=== PATIENT | female | born 1990 | race Caucasian/White ===

== ENCOUNTER 2018-12-10 18:55 | Emergency (ER) | payer BC ==
[2018-12-10] MEDS ORDERED: Sodium Chloride 0.9% 10 ML Syringe FLUSH PRN (19:12)
[2018-12-10] MEDS: Ondansetron 4 MG/2 ML SDV IVPUSH ONE (19:39)
[2018-12-10] MEDS: Morphine 4 MG/ML Syringe IVPUSH ONE (19:39)
[2018-12-10 20:01] LABS: CHLORIDE,CL 99 mmol/L (98-107); SODIUM,NA 135 mmol/L (136-145)
[2018-12-10 20:03] LABS: ANION GAP 13.5 mmol/L (10-20)
[2018-12-10] MEDS: Iopamidol 612 MG/ML 100 ML Bottle IVPUSH ONE (20:29)
[2018-12-10] MEDS: Take Home: Acetaminophen/HYDROcodone 325-5 MG, 5 Tab Pack PO ONE (21:14)
[2018-12-10] MEDS: cefTRIAXone 2 GM Vial IVPUSH ONE (21:17)
[2018-12-10 21:29] VITALS: BP 135/89
--- NOTE | 2018-12-11 01:05 | EDM.PDOC ---
ED HPI GENERAL MEDICAL PROBLEM - General Chief Complaint: Abdominal Pain Stated Complaint: abdominal pain Time Seen by Provider: 12/10/18 18:55 Source of Information: Reports: Patient History Limitations: Reports: No Limitations - History of Present Illness INITIAL COMMENTS - FREE TEXT/NARRATIVE: Pt. complains of lower abdominal pain with radiation into her lower/mid back. States that she has felt ill, chilled and feverish for 3 days. She has not been checking her temp. Nausea, but no vomiting. Denies any rashes. No diarrhea. No melena, hematochezia. States that she is passing gas but feels mildly constipated. Denies any dysuria, frequency, or urgency. Onset Date: 12/08/18 Duration: Constant, Getting Worse Location: Reports: Abdomen, Generalized Quality: Reports: Ache, Burning Severity: Severe Associated Symptoms: Reports: Fever/Chills, Nausea/Vomiting, Weakness Left Lower Abdomen Pain Score (Numeric/FACES): 5 - Related Data Allergies Allergy/AdvReac Type Severity Reaction Status Date / Time Sulfa (Sulfonamide Allergy Cannot Verified 12/10/18 19:13 Antibiotics) Remember Home Meds: Home Meds Amitriptyline [Elavil] 25 mg PO BEDTIME PRN 12/22/15 [History] Norgestimate-Ethinyl Estradiol [[place]inyah 28 Tablet] 1 each PO DAILY 10/08/18 [History] Naproxen Sodium [Aleve] 220 mg PO BID PRN 12/10/18 [History] Past Medical History - Past Health History Medical/Surgical History: Denies Medical/Surgical History HEENT History: Reports: None Other HEENT History: Myopia Cardiovascular History: Reports: None Respiratory History: Reports: None Gastrointestinal History: Reports: Other (See Below) Other Gastrointestinal History: ULCERS Genitourinary History: Reports: None 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: Musculoskeletal History: Other Musculoskeletal History: Missed Period Neurological History: Reports: Other (See Below) Other Neuro History: SYNCOPAL EPISODES Psychiatric History: Reports: Anxiety, Depression Other Psychiatric History: Adjustment Disorder Endocrine/Metabolic History: Reports: None Hematologic History: Reports: None Oncologic (Cancer) History: Reports: None Dermatologic History: Reports: None - Past Surgical History Cardiovascular Surgical History: Reports: None Social & Family History - Tobacco Use Smoking Status *Q: Current Every Day Smoker Years of Tobacco use: 12 Packs/Tins Daily: 1 ED ROS GENERAL - Review of Systems Review Of Systems: See Below Constitutional: Reports: Chills, Malaise, Fatigue HEENT: Reports: No Symptoms Respiratory: Reports: No Symptoms Cardiovascular: Reports: No Symptoms Endocrine: Reports: No Symptoms GI/Abdominal: Reports: Abdominal Pain, Constipation, Decreased Appetite, Nausea. Denies: Black Stool, Bloody Stool, Diarrhea, Vomiting : Reports: Flank Pain, Other (states urine is cloudy). Denies: Dysuria, Frequency Musculoskeletal: Reports: Joint Pain, Muscle Pain Skin: Reports: No Symptoms Neurological: Reports: No Symptoms Psychiatric: Reports: No Symptoms Hematologic/Lymphatic: Reports: No Symptoms Immunologic: Reports: No Symptoms ED EXAM, GENERAL - Physical Exam Exam: See Below Exam Limited By: No Limitations General Appearance: Alert, WD/WN, No Apparent Distress Eye Exam: Bilateral Eye: EOMI, Normal Fundi, Normal Inspection, PERRL Ears: Normal External Exam, Hearing Grossly Normal Throat/Mouth: Normal Inspection, Normal Lips, Normal Teeth, Normal Gums, Normal Oropharynx, Normal Voice, No Airway Compromise Head: Atraumatic, Normocephalic Neck: Normal Inspection, Supple, Non-Tender, Full Range of Motion Respiratory/Chest: No Respiratory Distress, Lungs Clear, Normal Breath Sounds, No Accessory Muscle Use, Chest Non-Tender Cardiovascular: Normal Peripheral Pulses, Regular Rate, Rhythm, No Edema, No Gallop, No JVD, No Murmur, No Rub Peripheral Pulses: 4+: Radial (L) GI/Abdominal: Normal Bowel Sounds, Soft, No Mass, Tender (diffusely tender. No rebound or guarding.). No: Guarding, Rebound (Female) Exam: Deferred Rectal (Female) Exam: Deferred Back Exam: Normal Inspection, Full Range of Motion, NT Extremities: Normal Inspection, Normal Range of Motion, Non-Tender, Normal Capillary Refill, No Pedal Edema Neurological: Alert, Oriented, CN II-XII Intact, Normal Cognition, Normal Gait, Normal Reflexes, No Motor/Sensory Deficits Psychiatric: Normal Affect, Normal Mood Skin Exam: Warm, Dry, Intact, Normal Color, No Rash Course - Vital Signs Last Recorded V/S: Last Vital Signs Temp 36.6 C 12/10/18 21:20 Pulse 111 H 12/10/18 21:20 Resp 18 12/10/18 21:20 BP 135/89 12/10/18 21:20 Pulse Ox 96 12/10/18 21:20 - Orders/Labs/Meds Orders: Active Orders 24 hr Category Date Time Status Abdomen Pelvis w Cont [CT] Stat Exams 12/10/18 20:11 Taken CULTURE BLOOD [BC] Stat Lab 12/10/18 19:26 Received CULTURE BLOOD [BC] Stat Lab 12/10/18 19:30 Received Blood Culture x2 Reflex Set [OM.PC] Stat Oth 12/10/18 19:13 Ordered Peripheral IV Insertion Adult [OM.PC] Routine Oth 12/10/18 19:13 Ordered Labs: Laboratory Tests 12/10/18 12/10/18 12/10/18 Range/Units 19:26 19:26 19:26 WBC 11.3 H (4.0-10.0) x10^3/uL RBC 3.83 L (4.00-5.50) x10^6/uL Hgb 13.0 (12.0-16.0) g/dL Hct 38.9 (33.0-47.0) % MCV 101.6 H D (78.0-93.0) fL MCH 33.9 H (26.0-32.0) pg MCHC 33.4 (32.0-36.0) g/dL RDW Coeff of Jamal 12.0 (10.0-15.0) % Plt Count 243 (130-400) x10^3/uL Neut % (Auto) 71.0 (50.0-80.0) % Lymph % (Auto) 20.1 L (25.0-50.0) % [place] % (Auto) 7.3 (2.0-11.0) % Eos % (Auto) 1.3 (0.0-4.0) % Baso % (Auto) 0.3 (0.2-1.2) % PT 9.7 (9.6-11.4) SEC INR 0.9 L (2.0-3.5) Sodium 135 L (136-145) mmol/L Potassium 3.5 (3.5-5.1) mmol/L Chloride 99 (98-107) mmol/L Carbon Dioxide 26 (21-32) mmol/L Anion Gap 13.5 (10-20) mmol/L BUN 6 L (7-18) mg/dL Creatinine 0.8 (0.55-1.02) mg/dL Est Cr Clr Drug Dosing TNP Estimated GFR (MDRD) > 60 Glucose 130 H (74-106) mg/dL Lactic Acid (0.4-2.0) mmol/L Calcium 9.4 (8.5-10.1) mg/dL Corrected Calcium 9.88 (8.5-10.1) mg/dL Phosphorus 1.9 L (2.6-4.7) mg/dL Magnesium 1.8 (1.8-2.4) mg/dL Total Bilirubin 0.3 (0.2-1.0) mg/dL AST 19 (15-37) U/L ALT 20 (14-59) U/L Alkaline Phosphatase 53 (46-116) U/L C-Reactive Protein 18.3 H (<=0.9) mg/dL Total Protein 7.8 (6.4-8.2) g/dL Albumin 3.4 (3.4-5.0) g/dL Globulin 4.4 Albumin/Globulin Ratio 0.77 Urine Color (YELLOW) Urine Appearance (CLEAR) Urine pH (5.0-8.0) Ur Specific [place] Urine Protein (NEGATIVE) mg/dL Urine Glucose (UA) (NEGATIVE) mg/dL Urine Ketones (NEGATIVE) mg/dL Urine Occult Blood (NEGATIVE) Urine Nitrite (NEGATIVE) Urine Bilirubin (NEGATIVE) Urine Urobilinogen (0.2) EU/dL Ur Leukocyte Esterase (NEGATIVE) Urine RBC (NOT SEEN) /HPF Urine WBC (NOT SEEN) /HPF Ur Squamous Epith Cells (NEGATIVE) /HPF Urine Bacteria (NEGATIVE) /HPF Urine Mucus (NEGATIVE) /LPF POC Urine HCG, Qual (NEGATIVE) 12/10/18 12/10/18 12/10/18 Range/Units 19:26 19:35 19:35 WBC (4.0-10.0) x10^3/uL RBC (4.00-5.50) x10^6/uL Hgb (12.0-16.0) g/dL Hct (33.0-47.0) % MCV (78.0-93.0) fL MCH (26.0-32.0) pg MCHC (32.0-36.0) g/dL RDW Coeff of Jamal (10.0-15.0) % Plt Count (130-400) x10^3/uL Neut % (Auto) (50.0-80.0) % Lymph % (Auto) (25.0-50.0) % [place] % (Auto) (2.0-11.0) % Eos % (Auto) (0.0-4.0) % Baso % (Auto) (0.2-1.2) % PT (9.6-11.4) SEC INR (2.0-3.5) Sodium (136-145) mmol/L Potassium (3.5-5.1) mmol/L Chloride (98-107) mmol/L Carbon Dioxide (21-32) mmol/L Anion Gap (10-20) mmol/L BUN (7-18) mg/dL Creatinine (0.55-1.02) mg/dL Est Cr Clr Drug Dosing Estimated GFR (MDRD) Glucose (74-106) mg/dL Lactic Acid 1.3 (0.4-2.0) mmol/L Calcium (8.5-10.1) mg/dL Corrected Calcium (8.5-10.1) mg/dL Phosphorus (2.6-4.7) mg/dL Magnesium (1.8-2.4) mg/dL Total Bilirubin (0.2-1.0) mg/dL AST (15-37) U/L ALT (14-59) U/L Alkaline Phosphatase (46-116) U/L C-Reactive Protein (<=0.9) mg/dL Total Protein (6.4-8.2) g/dL Albumin (3.4-5.0) g/dL Globulin Albumin/Globulin Ratio Urine Color Light yellow (YELLOW) Urine Appearance Clear (CLEAR) Urine pH 7.0 (5.0-8.0) Ur Specific [place] 1.010 Urine Protein Negative (NEGATIVE) mg/dL Urine Glucose (UA) Negative (NEGATIVE) mg/dL Urine Ketones Negative (NEGATIVE) mg/dL Urine Occult Blood Negative (NEGATIVE) Urine Nitrite Negative (NEGATIVE) Urine Bilirubin Negative (NEGATIVE) Urine Urobilinogen 0.2 (0.2) EU/dL Ur Leukocyte Esterase Trace H (NEGATIVE) Urine RBC 0-5 (NOT SEEN) /HPF Urine WBC 5-10 H (NOT SEEN) /HPF Ur Squamous Epith Cells Few H (NEGATIVE) /HPF Urine Bacteria Rare (NEGATIVE) /HPF Urine Mucus Not seen (NEGATIVE) /LPF POC Urine HCG, Qual Negative (NEGATIVE) Meds: Medications Discontinued Medications Generic Name Dose Route Start Last Admin Trade Name Isrrael PRN Reason Stop Dose Admin Hydrocodone Bitart/Acetaminophen 1 packet 12/10/18 21:11 12/10/18 21:14 Take Home: Acetam/Hydrocodon 325-5 Mg, 5 Pack PO 12/10/18 21:12 1 packet ONETIME ONE Administration Ceftriaxone Sodium 2 gm 12/10/18 21:08 12/10/18 21:17 Rocephin IVPUSH 12/10/18 21:09 2 gm STAT ONE Administration Iopamidol 100 ml 12/10/18 20:19 12/10/18 20:29 Isovue-300 (61%) IVPUSH 12/10/18 20:20 100 ml ONETIME ONE Administration Morphine Sulfate 4 mg 12/10/18 19:18 12/10/18 19:39 Morphine IVPUSH 12/10/18 19:19 4 mg ONETIME ONE Administration Ondansetron HCl 4 mg 12/10/18 19:18 12/10/18 19:39 Zofran IVPUSH 12/10/18 19:19 4 mg ONETIME ONE Administration Sodium Chloride 10 ml 12/10/18 19:12 Saline Flush FLUSH ASDIRECTED PRN Keep Vein Open - Radiology Interpretation Free Text/Narrative:: CT abd and pelvis obtained. There was evidence of bilateral pyelo. No abscess, diverticulitis, free air/fluid noted. Departure - Departure Time of Disposition: 21:26 Disposition: Home, Self-Care 01 Clinical Impression: Pyelonephritis - Discharge Information Instructions: Acetaminophen; Hydrocodone tablets or capsules, Pyelonephritis, Adult, [id number], Ciprofloxacin tablets, Probiotics Referrals: Bakari Shea MD [Primary Care Provider] - Forms: ED Department Discharge Additional Instructions: Cipro 500mg 1 twice daily for 7 days [place] 5/325mg 1 every 4-6 hours as needed for pain Ibuprofen 200mg 3 tab every 6 hours as needed for discomfort/fever Drink plenty of fluids Follow-up in clinic in 10 days for recheck Return to ER if vomiting, unable to hold down fluids, worsening abdominal pain, feeling faint, etc. - My Orders Last 24 Hours: My Active Orders 12/10/18 19:13 Blood Culture x2 Reflex Set [OM.PC] Stat Peripheral IV Insertion Adult [OM.PC] Routine 12/10/18 19:26 CULTURE BLOOD [BC] Stat 12/10/18 19:30 CULTURE BLOOD [BC] Stat 12/10/18 20:11 Abdomen Pelvis w Cont [CT] Stat - Assessment/Plan Last 24 Hours: My Active Orders 12/10/18 19:13 Blood Culture x2 Reflex Set [OM.PC] Stat Peripheral IV Insertion Adult [OM.PC] Routine 12/10/18 19:26 CULTURE BLOOD [BC] Stat 12/10/18 19:30 CULTURE BLOOD [BC] Stat 12/10/18 20:11 Abdomen Pelvis w Cont [CT] Stat Plan: Cipro 500mg 1 twice daily for 7 days [place] 5/325mg 1 every 4-6 hours as needed for pain Ibuprofen 200mg 3 tab every 6 hours as needed for discomfort/fever Drink plenty of fluids Follow-up in clinic in 10 days for recheck Return to ER if vomiting, unable to hold down fluids, worsening abdominal pain, feeling faint, etc.
--- NOTE | 2018-12-11 07:56 | CT ---
[id number] CT/CT Abdomen Pelvis W IV EXAM: CT Abdomen Pelvis W IV CLINICAL DATA: ABDOMINAL PAIN COMPARISON: NO PREVIOUS SIMILAR EXAM IS AVAILABLE. FINDINGS: The liver and spleen are unremarkable. Low attenuation foci are seen in the kidneys. There is no renal mass or hydronephrosis. There is no adrenal mass. The aorta and pancreas are within normal limits. There is no bowel distention. The gallbladder is not distended. There is no bowel wall thickening either. There is no free fluid or free air. There is no adenopathy. The pelvis shows no mass, free fluid, abscess, inflammatory change, or adenopathy. Physiologic changes of the ovaries are seen. The endometrium is prominent. The appendix is normal. IMPRESSION: QUESTION OF PYELONEPHRITIS. Fabricio Merritt MD 12/11/18 0754 Thank you for allowing us to participate in the care of your patient.
== END 2018-12-10 21:26 | disposition home or self-care (01) ==
LOC: VM.ED 18:55
DX: N12 Tubulo-interstitial nephritis, not specified as acute or chronic (principal); Z88.2 Allergy status to sulfonamides; F17.210 Nicotine dependence, cigarettes, uncomplicated
CPT/HCPCS: 36415; 74177; 80053; 81001; 81025; 83605; 83735; 84100; 85025; 85610; 86140; 87040; 96374; 96375; 99284; A9270-GY; J0696; J2270; J2405; Q9967

== ENCOUNTER 2019-09-30 18:30 | Emergency (ER) | payer BC ==
[2019-09-30 20:18] VITALS: BP 126/78; PULSE 94
[2019-09-30 20:20] LABS: ANION GAP 14.4 mmol/L (10-20); CHLORIDE,CL 103 mmol/L (98-107); SODIUM,NA 140 mmol/L (136-145)
--- NOTE | 2019-09-30 20:45 | CR ---
[id number] RAD/RAD Abd Flat and Upright 2V EXAM: ABDOMEN 3 VIEWS INDICATION: ABDOMINAL PAIN. COMPARISON: CT of December 10, 2018. DISCUSSION: The bowel gas pattern is normal in appearance without free air or pneumatosis detected. No pathologic calcifications or osseous lesions are seen. IMPRESSION: 1. Negative exam. Brent Reardon MD 09/30/19 2044 Thank you for allowing us to participate in the care of your patient.
--- NOTE | 2019-10-02 06:42 | EDM.PDOC ---
ED HPI GENERAL MEDICAL PROBLEM - General Chief Complaint: General Stated Complaint: Low back pain, ?kidney infection Time Seen by Provider: 09/30/19 19:15 Source of Information: Reports: Patient History Limitations: Reports: No Limitations - History of Present Illness INITIAL COMMENTS - FREE TEXT/NARRATIVE: Pt. presents to ER with complaints of low back and abdominal pain, worse on the R than the L. Denies any fever or chills. She states that she has had some watery stools. Denies any fever or chills. No vomiting but complains of nausea. Pt. states that she has been experiencing the discomfort for approx. 12 hours. Onset Date: 09/30/19 Location: Reports: Abdomen, Back low back/low abdomen Pain Score (Numeric/FACES): 5 - Related Data Allergies Allergy/AdvReac Type Severity Reaction Status Date / Time Sulfa (Sulfonamide Allergy Cannot Verified 09/30/19 20:04 Antibiotics) Remember Home Meds: Home Meds Norgestimate-Ethinyl Estradiol [[place]inyah 28 Tablet] 1 each PO DAILY 10/08/18 [History] Naproxen Sodium [Aleve] 220 mg PO BID PRN 12/10/18 [History] Past Medical History - Past Health History Medical/Surgical History: Denies Medical/Surgical History HEENT History: Reports: None Other HEENT History: Myopia Cardiovascular History: Reports: None Respiratory History: Reports: None Gastrointestinal History: Reports: Other (See Below) Other Gastrointestinal History: ULCERS Genitourinary History: Reports: 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: Other Musculoskeletal History: Missed Period Neurological History: Reports: Other (See Below) Other Neuro History: SYNCOPAL EPISODES Psychiatric History: Reports: Anxiety, Depression Other Psychiatric History: Adjustment Disorder Endocrine/Metabolic History: Reports: None Hematologic History: Reports: None Oncologic (Cancer) History: Reports: None Dermatologic History: Reports: None - Past Surgical History Cardiovascular Surgical History: Reports: None ED ROS GENERAL - Review of Systems Review Of Systems: See Below Constitutional: Reports: No Symptoms HEENT: Reports: No Symptoms Respiratory: Reports: No Symptoms Cardiovascular: Reports: No Symptoms Endocrine: Reports: No Symptoms GI/Abdominal: Reports: Abdominal Pain : Reports: No Symptoms Musculoskeletal: Reports: Back Pain Skin: Reports: No Symptoms Neurological: Reports: No Symptoms Psychiatric: Reports: No Symptoms Hematologic/Lymphatic: Reports: No Symptoms Immunologic: Reports: No Symptoms ED EXAM, GENERAL - Physical Exam Exam: See Below Exam Limited By: No Limitations General Appearance: Alert, WD/WN, No Apparent Distress Eye Exam: Bilateral Eye: EOMI, PERRL Throat/Mouth: Normal Inspection, Normal Lips, Normal Teeth, Normal Gums, Normal Oropharynx, Normal Voice, No Airway Compromise Head: Atraumatic, Normocephalic Neck: Normal Inspection, Supple, Non-Tender, Full Range of Motion Respiratory/Chest: No Respiratory Distress, Lungs Clear, Normal Breath Sounds, No Accessory Muscle Use, Chest Non-Tender Cardiovascular: Normal Peripheral Pulses, Regular Rate, Rhythm, No Edema, No Gallop, No JVD, No Murmur, No Rub Peripheral Pulses: 4+: Radial (R) GI/Abdominal: Normal Bowel Sounds, Soft, Non-Tender, No Organomegaly, No Distention, No Abnormal Bruit, No Mass (Female) Exam: Deferred Rectal (Female) Exam: Deferred Back Exam: Normal Inspection, Full Range of Motion Extremities: Normal Inspection, Normal Range of Motion, Non-Tender, Normal Capillary Refill, No Pedal Edema Neurological: Alert, Oriented, CN II-XII Intact, Normal Cognition, Normal Gait, Normal Reflexes, No Motor/Sensory Deficits Psychiatric: Normal Affect, Normal Mood Skin Exam: Warm, Dry, Intact, Normal Color, No Rash Lymphatic: No Adenopathy Course - Vital Signs Last Recorded V/S: Last Vital Signs Temp 36.8 C 09/30/19 19:15 Pulse 94 09/30/19 19:15 Resp 16 09/30/19 19:15 BP 126/78 09/30/19 19:15 Pulse Ox - Orders/Labs/Meds Labs: Laboratory Tests 09/30/19 09/30/19 09/30/19 Range/Units 19:30 19:30 19:52 WBC 8.5 (4.0-10.0) x10^3/uL RBC 3.96 L (4.00-5.50) x10^6/uL Hgb 13.4 (12.0-16.0) g/dL Hct 38.4 (33.0-47.0) % MCV 97.0 H D (78.0-93.0) fL MCH 33.8 H (26.0-32.0) pg MCHC 34.9 (32.0-36.0) g/dL RDW Coeff of Jamal 11.9 (10.0-15.0) % Plt Count 197 (130-400) x10^3/uL Neut % (Auto) 53.0 (50.0-80.0) % Lymph % (Auto) 36.6 (25.0-50.0) % [place] % (Auto) 7.8 (2.0-11.0) % Eos % (Auto) 2.4 (0.0-4.0) % Baso % (Auto) 0.2 (0.2-1.2) % PT (10.0-12.8) SEC INR (2.0-3.5) Sodium (136-145) mmol/L Potassium (3.5-5.1) mmol/L Chloride (98-107) mmol/L Carbon Dioxide (21-32) mmol/L Anion Gap (10-20) mmol/L BUN (7-18) mg/dL Creatinine (0.55-1.02) mg/dL Est Cr Clr Drug Dosing mL/min Estimated GFR (MDRD) Glucose (74-106) mg/dL Calcium (8.5-10.1) mg/dL Corrected Calcium (8.5-10.1) mg/dL Magnesium (1.8-2.4) mg/dL Total Bilirubin (0.2-1.0) mg/dL AST (15-37) U/L ALT (14-59) U/L Alkaline Phosphatase (46-116) U/L C-Reactive Protein (<=0.9) mg/dL Total Protein (6.4-8.2) g/dL Albumin (3.4-5.0) g/dL Globulin Albumin/Globulin Ratio Urine Color Light yellow (YELLOW) Urine Appearance Clear (CLEAR) Urine pH 6.0 (5.0-8.0) Ur Specific [place] 1.010 Urine Protein Negative (NEGATIVE) mg/dL Urine Glucose (UA) Negative (NEGATIVE) mg/dL Urine Ketones Negative (NEGATIVE) mg/dL Urine Occult Blood Negative (NEGATIVE) Urine Nitrite Negative (NEGATIVE) Urine Bilirubin Negative (NEGATIVE) Urine Urobilinogen 0.2 (0.2) EU/dL Ur Leukocyte Esterase Negative (NEGATIVE) Urine RBC 0-5 (NOT SEEN) /HPF Urine WBC 0-5 (NOT SEEN) /HPF Ur Squamous Epith Cells Few H (NEGATIVE) /HPF Urine Bacteria Not seen (NEGATIVE) /HPF Urine Mucus Not seen (NEGATIVE) /LPF POC Urine HCG, Qual Negative (NEGATIVE) 09/30/19 09/30/19 Range/Units 19:52 19:52 WBC (4.0-10.0) x10^3/uL RBC (4.00-5.50) x10^6/uL Hgb (12.0-16.0) g/dL Hct (33.0-47.0) % MCV (78.0-93.0) fL MCH (26.0-32.0) pg MCHC (32.0-36.0) g/dL RDW Coeff of Jamal (10.0-15.0) % Plt Count (130-400) x10^3/uL Neut % (Auto) (50.0-80.0) % Lymph % (Auto) (25.0-50.0) % [place] % (Auto) (2.0-11.0) % Eos % (Auto) (0.0-4.0) % Baso % (Auto) (0.2-1.2) % PT 9.9 L (10.0-12.8) SEC INR 0.9 L (2.0-3.5) Sodium 140 (136-145) mmol/L Potassium 3.4 L (3.5-5.1) mmol/L Chloride 103 (98-107) mmol/L Carbon Dioxide 26 (21-32) mmol/L Anion Gap 14.4 (10-20) mmol/L BUN 9 (7-18) mg/dL Creatinine 0.7 (0.55-1.02) mg/dL Est Cr Clr Drug Dosing 92.10 mL/min Estimated GFR (MDRD) > 60 Glucose 106 (74-106) mg/dL Calcium 8.7 (8.5-10.1) mg/dL Corrected Calcium 9.10 (8.5-10.1) mg/dL Magnesium 2.0 (1.8-2.4) mg/dL Total Bilirubin 0.3 (0.2-1.0) mg/dL AST 12 L (15-37) U/L ALT 21 (14-59) U/L Alkaline Phosphatase 35 L (46-116) U/L C-Reactive Protein < 0.2 (<=0.9) mg/dL Total Protein 7.2 (6.4-8.2) g/dL Albumin 3.5 (3.4-5.0) g/dL Globulin 3.7 Albumin/Globulin Ratio 0.95 Urine Color (YELLOW) Urine Appearance (CLEAR) Urine pH (5.0-8.0) Ur Specific [place] Urine Protein (NEGATIVE) mg/dL Urine Glucose (UA) (NEGATIVE) mg/dL Urine Ketones (NEGATIVE) mg/dL Urine Occult Blood (NEGATIVE) Urine Nitrite (NEGATIVE) Urine Bilirubin (NEGATIVE) Urine Urobilinogen (0.2) EU/dL Ur Leukocyte Esterase (NEGATIVE) Urine RBC (NOT SEEN) /HPF Urine WBC (NOT SEEN) /HPF Ur Squamous Epith Cells (NEGATIVE) /HPF Urine Bacteria (NEGATIVE) /HPF Urine Mucus (NEGATIVE) /LPF POC Urine HCG, Qual (NEGATIVE) - Radiology Interpretation Free Text/Narrative:: flat and upright abdominal x-rays are negative. Departure - Departure Time of Disposition: 20:48 Disposition: Home, Self-Care 01 Condition: Good Clinical Impression: Constipation - Discharge Information Instructions: Constipation, Adult, [id number] Referrals: Bakari Shea MD [Primary Care Provider] - Forms: ED Department Discharge Additional Instructions: Continue to drink plenty of fluids. Miralax 17 gm (1 capful) once daily with several glasses of water. Take half a bottle of mag citrate to help clean out your colon. If you don't have a large BM within 6 hours, take the other half of the bottle. Return to ER if you have increased pain, fever, chills, or call if you have questions. - Assessment/Plan Plan: Continue to drink plenty of fluids. Miralax 17 gm (1 capful) once daily with several glasses of water. Take half a bottle of mag citrate to help clean out your colon. If you don't have a large BM within 6 hours, take the other half of the bottle. Return to ER if you have increased pain, fever, chills, or call if you have questions.
== END 2019-09-30 20:48 | disposition home or self-care (01) ==
LOC: VM.ED 18:30
DX: K59.00 Constipation, unspecified (principal); Z88.2 Allergy status to sulfonamides
CPT/HCPCS: 36415; 74019; 80053; 81001; 81025; 83735; 85025; 85610; 86140

== ENCOUNTER 2025-08-14 15:59 | Emergency (ER) | payer OTHER, BC ==
[2025-08-14 16:16] VITALS: BP 143/76; PULSE 103
== END 2025-08-14 16:37 | disposition home or self-care (01) ==
LOC: VM.ED 15:59
DX: M25.462 Effusion, left knee (principal); F17.200 Nicotine dependence, unspecified, uncomplicated; Z88.2 Allergy status to sulfonamides; Z79.899 Other long term (current) drug therapy
CPT/HCPCS: 99283